=== PATIENT | male | born 1980 | race African-American/Black ===

== ENCOUNTER 2018-01-27 | Emergency (ER) | payer SELFPAY ==
--- NOTE | 2018-01-27 23:38 | EDPHYS ---
Physician Documentation [facility] Name: Kvng Montgomery Age: 37 yrs Sex: Male : 1980 Arrival Date: 01/27/2018 Time: 21:08 Bed 15 Private MD: TAYA Physician Jacky Watts HPI: 01/27 23:48 This 37 yrs old Black Male presents to ER via Ambulatory with complaints of Numbness - snw Toe. 23:49 The patient presents with numbness that is intermittent to right second toe. denies snw injury. The complaints affect the right foot. Context: unknown. Onset: The symptoms/episode began/occurred gradually, 1 week(s) ago. Modifying factors: The symptoms are alleviated by nothing, the symptoms are aggravated by nothing. Severity of symptoms: At their worst the symptoms were very mild. The patient has not experienced similar symptoms in the past. Historical: - Allergies: 21:19 No Known Allergies; aa1 - Home Meds: 21:19 None [Active]; aa1 - PMHx: 21:19 None; aa1 - PSHx: 21:19 None; aa1 - Immunization history:: Flu vaccine is not up to date. - Social history:: Smoking status: Patient uses tobacco products, denies chronic smoking, but will smoke occasionally. ROS: 23:47 Constitutional: Negative for fever, chills, and weight loss, Eyes: Negative for injury, snw pain, redness, and discharge, ENT: Negative for injury, pain, and discharge, Neck: Negative for injury, pain, and swelling, Cardiovascular: Negative for chest pain, palpitations, and edema, Respiratory: Negative for shortness of breath, cough, wheezing, and pleuritic chest pain, Abdomen/GI: Negative for abdominal pain, nausea, vomiting, diarrhea, and constipation, Back: Negative for injury and pain, : Negative for injury, bleeding, discharge, and swelling, Skin: Negative for injury, rash, and discoloration, Neuro: Negative for headache, weakness, numbness, tingling, and seizure. 23:47 MS/extremity: Positive for paresthesias, of the right second toe. Exam: 23:47 Constitutional: This is a well developed, well nourished patient who is awake, alert, snw and in no acute distress. Head/Face: Normocephalic, atraumatic. Eyes: Pupils equal round and reactive to light, extra-ocular motions intact. Lids and lashes normal. Conjunctiva and sclera are non-icteric and not injected. Cornea within normal limits. Periorbital areas with no swelling, redness, or edema. ENT: Nares patent. No nasal discharge, no septal abnormalities noted. Tympanic membranes are normal and external auditory canals are clear. Oropharynx with no redness, swelling, or masses, exudates, or evidence of obstruction, uvula midline. Mucous membranes moist. Neck: Trachea midline, no thyromegaly or masses palpated, and no cervical lymphadenopathy. Supple, full range of motion without nuchal rigidity, or vertebral point tenderness. No Meningismus. Chest/axilla: Normal chest wall appearance and motion. Nontender with no deformity. No lesions are appreciated. Cardiovascular: Regular rate and rhythm with a normal S1 and S2. No gallops, murmurs, or rubs. Normal PMI, no JVD. No pulse deficits. Respiratory: Lungs have equal breath sounds bilaterally, clear to auscultation and percussion. No rales, rhonchi or wheezes noted. No increased work of breathing, no retractions or nasal flaring. Abdomen/GI: Soft, non-tender, with normal bowel sounds. No distension or tympany. No guarding or rebound. No evidence of tenderness throughout. Back: No spinal tenderness. No costovertebral tenderness. Full range of motion. Skin: Warm, dry with normal turgor. Normal color with no rashes, no lesions, and no evidence of cellulitis. MS/ Extremity: Pulses equal, no cyanosis. Neurovascular intact except intermittent numbness to right second toe. Full, normal range of motion. Neuro: Awake and alert, GCS 15, oriented to person, place, time, and situation. Cranial nerves II-XII grossly intact. Motor strength 5/5 in all extremities. Sensory grossly intact. Cerebellar exam normal. Normal gait. Vital Signs: 21:19 BP 125 / 77; Pulse 71; Resp 16; Temp 97.9(O); Pulse Ox 97% on R/A; Weight 113.4 kg; aa1 Height 6 ft. 3 in. (190.50 cm); Pain 0/10; 23:58 BP 123 / 71; Pulse 69; Resp 16; Pulse Ox 98% on R/A; aa1 21:19 Body Mass Index 31.25 (113.40 kg, 190.50 cm) [facility] MDM: 22:56 Patient medically screened. [facility] 23:48 Data reviewed: vital signs, nurses notes. Data interpreted: Pulse oximetry: on room air snw is 97 %. Interpretation: acceptable. Counseling: I had a detailed discussion with the patient and/or guardian regarding: the historical points, exam findings, and any diagnostic results supporting the discharge/admit diagnosis, the need for outpatient follow up, to return to the emergency department if symptoms worsen or persist or if there are any questions or concerns that arise at home. Special discussion: Based on the history and exam findings, there is no indication for further emergent testing or inpatient evaluation. I discussed with the patient/guardian the need to see the primary care provider for further evaluation of the symptoms. Administered Medications: No medications were administered Disposition: 01/28 09:16 Co-signature as Attending Physician, Jacky Watts MD I agree with the assessment and [facility] plan of care. Disposition: 01/27/18 23:37 Discharged to Home. Impression: Paresthesia of skin. - Condition is Stable. - Discharge Instructions: Paresthesia. - Prescriptions for Diclofenac Sodium 75 mg Oral Tablet Sustained Release - take 1 tablet by ORAL route 2 times per day; 30 tablet. - Medication Reconciliation Form, Thank You Letter, Antibiotic Education, Prescription Opioid Use form. - Work release form (01/28/18 05:28). em1 - Follow up: Private Physician; When: 2 - 3 days; Reason: Recheck today's complaints, Continuance of care, Re-evaluation by your physician. Follow up: Emergency Department; When: As needed; Reason: Worsening of condition. Signatures: Tonya James, RN RN Jacky Cast MD MD cha Therrien, Shelly, EASEMENT WORKER-C EASEMENT WORKER-Kishore Hanna em1
--- NOTE | 2018-01-27 23:38 | ER ---
Nurse's Notes [facility] Name: Kvng Montgomery Age: 37 yrs Sex: Male : 1980 Arrival Date: 01/27/2018 Time: 21:08 Bed 15 Private MD: Diagnosis: Paresthesia of skin Presentation: 01/27 21:18 Presenting complaint: Patient states: numbness to L second toe x 2 days. Denies injury. aa1 Gait steady. Transition of care: patient was not received from another setting of care. Onset of symptoms was January 26, 2018. Care prior to arrival: None. 21:18 Method Of Arrival: Ambulatory aa1 21:18 Acuity: EMERY 5 aa1 Triage Assessment: 21:19 General: Appears in no apparent distress. comfortable, Behavior is calm, cooperative, aa1 appropriate for age. Historical: - Allergies: 21:19 No Known Allergies; aa1 - Home Meds: 21:19 None [Active]; aa1 - PMHx: 21:19 None; aa1 - PSHx: 21:19 None; aa1 - Immunization history:: Flu vaccine is not up to date. - Social history:: Smoking status: Patient uses tobacco products, denies chronic smoking, but will smoke occasionally. Screenin:34 Abuse screen: Denies threats or abuse. Denies injuries from another. Nutritional aa1 screening: No deficits noted. Tuberculosis screening: No symptoms or risk factors identified. Fall Risk None identified. Assessment: 22:34 General: Appears in no apparent distress. comfortable, Behavior is calm, cooperative, aa1 appropriate for age. Pain: Denies pain. Neuro: Level of Consciousness is awake, alert, obeys commands, Oriented to person, place, time, situation, Moves all extremities. Full function Gait is steady. Respiratory: Airway is patent Respiratory effort is even, unlabored, Respiratory pattern is regular, symmetrical. GI: No signs and/or symptoms were reported involving the gastrointestinal system. : No signs and/or symptoms were reported regarding the genitourinary system. EENT: No signs and/or symptoms were reported regarding the EENT system. 23:58 Reassessment: Patient appears in no apparent distress at this time. Patient is alert, aa1 oriented x 3, equal unlabored respirations, skin warm/dry/pink. Discussed d/c \T\ f/u instructions with pt \T\ spouse; denies questions or concerns. Vital Signs: 21:19 BP 125 / 77; Pulse 71; Resp 16; Temp 97.9(O); Pulse Ox 97% on R/A; Weight 113.4 kg; aa1 Height 6 ft. 3 in. (190.50 cm); Pain 0/10; 23:58 BP 123 / 71; Pulse 69; Resp 16; Pulse Ox 98% on R/A; aa1 21:19 Body Mass Index 31.25 (113.40 kg, 190.50 cm) aa1 ED Course: 21:08 Patient arrived in ED. as 21:18 Triage completed. aa1 21:19 Arm band placed on left wrist. Patient placed in waiting room, Patient notified of wait aa1 time. 22:34 Tonya James RN is Primary Nurse. aa1 22:34 Patient has correct armband on for positive identification. Bed in low position. Call aa1 light in reach. Pulse ox on. NIBP on. 22:40 Samantha Gill FNP-C is PHCP. snw 22:40 Jacky Watts MD is Attending Physician. snw 23:58 No provider procedures requiring assistance completed. Patient did not have IV access aa1 during this emergency room visit. Administered Medications: No medications were administered Outcome: 23:37 Discharge ordered by . snw 23:58 Discharged to home ambulatory, with significant other. aa1 23:58 Condition: good 23:58 Discharge instructions given to patient, significant other, Instructed on discharge instructions, follow up and referral plans. medication usage, Demonstrated understanding of instructions, follow-up care, medications, Prescriptions given X 1. 0412 00:00 Patient left the ED. aa1 Signatures: Tonya James, ABDI RN aa1 Samantha Gill FNP-C REMOTE SENSING TECHNOLOGIST-Csnw Tyesha Tavera as
== END 2018-01-28 | disposition home or self-care (01) ==
CPT/HCPCS: 99283